=== PATIENT | female | born 1970 | race Two or more races ===

== ENCOUNTER 2022-01-19 12:46 | Emergency (ER) | payer MEDICAID ==
[~2022-01-19] VITALS: Ht 160 cm; Wt 73.8 kg
[2022-01-19 15:35] VITALS: BP 127/70
[2022-01-19] MEDS ORDERED: TAM75SU PO (16:53)
[2022-01-19] MEDS ORDERED: OSEL6SUS5 PO (16:53)
[2022-01-19] MEDS ORDERED: ACET5SOL5 PO (16:53)
== END 2022-01-19 16:59 | disposition home or self-care (01) ==
LOC: ER 12:52
DX: J11.1 Influenza due to unidentified influenza virus with other respiratory manifestations (principal); R51.9 Headache, unspecified